=== PATIENT | female | born 1945 | race Caucasian/White ===

== ENCOUNTER 2019-03-16 10:23 | Day surgery (SDC) | payer MEDICARE ==
[2019-03-15 17:17] VITALS: Ht 170.2 cm; Wt 72.7 kg
[~2019-03-16] VITALS: Ht 170.2 cm; Wt 72.7 kg
[2019-03-16] VITALS (13 sets, daily range): BP systolic 112–167; BP diastolic 55–75; PULSE 50–59; RESP 16–26
[~2019-03-16 10:23] MED LIST: AMLO1CAP PO; CEFAZOLIN 2 GM/50 ML (PMX) 50 ML IVPB SCH; HYDR25TA6 PO
[2019-03-16] MEDS ORDERED: LACTATED RINGER'S 1,000 ML IV SCH (12:00)
[2019-03-16] MEDS ORDERED: BUPIVACAINE 0.25%/EPI (SDV) 10 ML INJ ONE ×2 (13:14)
[2019-03-16] MEDS ORDERED: LIDOCAINE 1% (MPF) 30 ML INJ ONE (13:14)
[2019-03-16] MEDS ORDERED: FENTAnyl 50 MCG/ML VIAL ONE (13:17)
[2019-03-16] MEDS ORDERED: ROCURONIUM 50 MG INJ ONE (13:17)
[2019-03-16] MEDS ORDERED: PROPOFOL 20 ML ONE (13:17)
[2019-03-16] MEDS ORDERED: LIDOCAINE 2% (SDV) 5 ML INJ ONE (13:17)
[2019-03-16] MEDS ORDERED: ONDANSETRON 4 MG INJ IV PRN ×2 (13:30→14:00)
[2019-03-16] MEDS ORDERED: DEXAMETHASONE 4 MG/ML 5 ML INJ ONE (13:34)
[2019-03-16] MEDS ORDERED: ONDANSETRON 4 MG INJ ONE (13:34)
[2019-03-16] MEDS ORDERED: CEFAZOLIN 1 GM INJ ONE (13:34)
[2019-03-16] MEDS ORDERED: EPHEDrine 25 MG/5 ML SYG ONE (13:47)
[2019-03-16] MEDS ORDERED: FAMOTIDINE 20 MG INJ ONE (13:48)
[2019-03-16] MEDS ORDERED: MEPERIDINE 25 MG INJ IV PRN (14:00)
[2019-03-16] MEDS ORDERED: LABETALOL HCL 20MG INJ IV PRN (14:00)
[2019-03-16] MEDS ORDERED: OXYCODONE/ACETAMINOPHEN (5/325) TAB PO PRN ×2 (14:00)
[2019-03-16] MEDS ORDERED: HYDROmorphONE 1 MG/5 ML IV SYRINGE IV PRN ×3 (14:00)
[2019-03-16] MEDS ORDERED: hydrALAzine 20 MG INJ IV PRN (14:00)
[2019-03-16] MEDS ORDERED: SUGAMMADEX SODIUM 200 MG/2 ML VIAL IV ONE (14:08)
[2019-03-16] MEDS ORDERED: KETOROLAC 30 MG INJ ONE (14:09)
== END 2019-03-16 16:26 | disposition home or self-care (01) ==
LOC: SDS 10:23
PROVIDERS: ATTEND Surgery
DX: K80.20 Calculus of gallbladder without cholecystitis without obstruction (principal); K76.0 Fatty (change of) liver, not elsewhere classified; I10 Essential (primary) hypertension
CPT/HCPCS: 88304; 88307; 88313; J0360; J0690; J1100; J1885; J2405; J3010